=== PATIENT | female | born 1960 | race Caucasian/White ===

== ENCOUNTER 2025-02-18 09:59 | Outpatient (REF) | payer MEDICARE, SELFPAY ==
--- OUTSIDE RECORDS SUMMARY | 2025-02-18 11:46 | XMS_ITS | Clinical Summary ---
Author Organization [employer] Address [address] [place] [address] [address] [place] [address] Care Team Providers Care Machine Former Name Role Phone Flory Evangelista MD Primary Care Provider [phone] Allergies Active Allergy Reactions Criticality Noted Date Comments [place] Meal (Obsolete) Angioedema 01/22/2025 Aspirin Hives 01/22/2025 Penicillin G Hives 01/22/2025 Medications Blood Pressure kitIndications:El evated blood pressure reading 1 Units Once per day. 1 kit 01/23/20 25 Active Diclofenac Sodium 1 % gel APPLY 2 GRAMS TOPICALLY TO AFFECTED AREA 4 TIMES A DAY FOR PAIN FOR 10 DAYS 01/09/20 25 025 Discontinu ed(Therapy completed) indomethacin (Indocin) 50 MG capsule TAKE 1 CAPSULE (ORAL) 3 TIMES PER DAY NEEDED FOR PAIN FOR 14 DAYS 11/22/19 25 025 Discontinu ed(Therapy completed) [id number] Vac Recomb Adjuvanted 120 MCG/0.5ML reconstituted suspension Inject 0.5 mL into the muscle 1 (one) time for 1 dose. 1 each 01/23/20 25 025 Active Problems No known active problems Encounters Date Type Department Care Team Description 01/28/2025 Telephone [facility] MED & PEDS [address] [place], [place] [phone] Flory Evangelista MD 01/25/2025 Orders Only [place] [employer] [address] [place], [place] [phone] ProviderAlla MD 01/22/2025 1:15 PM EDT Office Visit [facility] MED & PEDS [address] [place] [address] Flory Evangelista MD Elevated blood pressure reading (Primary Dx); Breast cancer screening by mammogram; Need for vaccination; Encounter for health-related screening; Chronic pain of left thumb; Chronic pain of left knee 01/22/2025 Travel 01/14/2025 Patient Outreach [facility] [address] [place] [address] Rinku Linda MD Pre-visit Planning (Pre visit planning LVM ) from Last 3 Months Family History Medical History Relation Name Comments Thyroid nodules Brother back pain Brother Stomach cancer Daughter Intracerebral hemorrhage Father Dementia Mother Hypertension Mother Depression Sister Younger Sister Relation Name Status Comments Brother Daughter Father Mother Sister Younger Sister Other Social History Tobacco Use Types Packs/Day Years Used Date Smoking Tobacco: Never Passive Smoke Exposure: Never Smokeless Tobacco: Never Tobacco Cessation:Counseling Given: Not Answered Alcohol Use Standard Drinks/Week Comments Never 0 (1 standard drink = 0.6 oz pur e alcohol) Comments Unknown Sex and Gender Information Value Date Recorded Sex Assigned at Female 01/22/2025 10:33 AM EDT Legal Sex Female 2:26 PM EDT Gender Identity Female 11/09/2024 2:30 PM EDT Sexual Orientation Don't know 01/22/2025 10 :33 AM EDT Last Filed Vital Signs Vital Sign Reading Time Taken Comments Blood Pressure 138/99 01/22/2025 1:24 PM EDT Pulse 86 01/22/2025 1:24 PM EDT Temperature 36.6 C (97.8 F) 01/22/2025 1:24 PM EDT Respiratory Rate 20 01/22/2025 1:24 PM EDT Oxygen Saturation 98% 01/22/2025 1:24 PM EDT Inhaled Oxygen Concentration - - Weight 54.5 kg (120 lb 3.2 oz) 01/22/2025 1:24 P M EDT Height 151 cm (4' 11.45 ) 01/22/2025 1:24 PM EDT Body Mass Index 23.91 01/22/2025 1:24 PM EDT Plan of Treatment Upcoming Encounters Date Type Department Care Team (Late st Contact Info) Description 03/04/2025 2:30 PM EST Office Visit [facility] MED & PEDS [address] [place] [address] Flory Evangelista MD [address] [place] [address] Health Maintenance Due Date Last Done Comments CT Colonography 1958 Colonoscopy 1958 Depression Screening 1958 FIT 1958 FOBT 1958 SDOH Screening 1958 Sigmoidoscopy 1958 Alcohol/Substance Use Screening 1970 Hepatitis C Screening 1976 DTaP/Tdap/Td Vaccines (1 - Tdap) 1977 Mammogram 1998 Pneumococcal Vaccine: 50+ Ye ars (1 of 1 - PCV) 2008 Zoster Vaccines (1 of 2) 2008 COVID-19 Vaccine ( - 2023-2 5 season) 2024 Influenza Vaccine (#1) 2024 Tobacco Screening 01/22/2026 01/22/2025 Colorectal Cancer Screening 11/28/2027 FIT DNA/Cologuard 11/28/2027 11/27/2024 RSV Patients and Pa tients Aged 60 years or older (1 - 1-dose 75+ series) 2033 HIB Vaccines Aged Out No longer eligi ble based on patient's age to complete this topic HPV Vaccines Aged Out No longer eligi ble based on patient's age to complete this topic Hepatitis A Vaccines Aged Out No long er eligible based on patient's age to complete this topic Hepatitis B Vaccines Aged Out No long er eligible based on patient's age to complete this topic IPV Vaccines Aged Out No longer eligi ble based on patient's age to complete this topic Meningococcal B Vaccine Aged Out No l onger eligible based on patient's age to complete this topic Meningococcal Vaccine Aged Out No basil reta eligible based on patient's age to complete this topic RSV under 20 months Aged Out No longe r eligible based on patient's age to complete this topic Rotavirus Vaccines Aged Out No longer eligible based on patient's age to complete this topic Procedures Procedure Name Priority Date/Time Associated Diagnosis Comments COLOGUARD COLON CANCER SCREENING (EXTERNAL RESULTS ONLY) Routine 11/27/2024 11:17 AM EDT from Last 3 Months Results * Cologuard Cancer Screening (External Result Only) (11/27/2024 11:17 AM EDT) Stool (Rectum) Historical Provider POINT OF CARE TEST ENTER/ EDIT ORDERABLES Final Result from Last 3 Months Insurance [facility] PPO Care Teams Machine Former Relationship Specialty Start Date End Date Flory Evangelista MD [address] [place] [phone] PCP - General Family Medicine 01/22/25
--- OUTSIDE RECORDS SUMMARY | 2025-02-18 11:46 | XMS_ITS | Encounter Summary ---
Author Organization [employer] Address [address] [place] [address] [address] [place] [address] Care Team Providers Care Field Installer Name Role Phone Flory Evangelista MD Primary Care Provider [phone] Encounter Details Date Type Department Care Team (Late Contact Info) Description 01/25/2025 Orders Only [facility] [address] [place], [place] [phone] ProviderAlla MD Social History Tobacco Use Types Packs/Day Years Used Date Smoking Tobacco: Never Passive Smoke Exposure: Never Smokeless Tobacco: Never Alcohol Use Standard Drinks/Week Comments Never 0 (1 standard drink = 0.6 oz pur e alcohol) Comments Unknown Sex and Gender Information Value Date Recorded Sex Assigned at Female 01/22/2025 10:33 AM EDT Legal Sex Female 2:26 PM EDT Gender Identity Female 11/09/2024 2:30 PM EDT Sexual Orientation Don't know 01/22/2025 10 :33 AM EDT documented as of this encounter Plan of Treatment Upcoming Encounters Date Type Department Care Team (Late Contact Info) Description 03/04/2025 2:30 PM EST Office Visit [facility] MED & PEDS [address] [place] [address] Flory Evangelista MD [address] [place] [address] documented as of this encounter Procedures Procedure Name Priority Date/Time Associated Diagnosis Comments COLOGUARD COLON CANCER SCREENING (EXTERNAL RESULTS ONLY) Routine 11/27/2024 11:17 AM EDT documented in this encounter Results * Cologuard Cancer Screening (External Result Only) (11/27/2024 11:17 AM EDT) Stool (Rectum) us Historical Provider POINT OF CARE TEST ENTER/ EDIT ORDERABLES Final Result documented in this encounter Visit Diagnoses Not on filedocumented in this encounter Care Teams Field Installer Relationship Specialty Start Date End Date Flory Evangelista MD [address] [place] [phone] PCP - General Family Medicine 01/22/25 documented as of this encounter
[2025-02-18 14:35] LABS: MANUAL DIFF FLAG NO
[2025-02-18 14:49] LABS: Hematocrit 43.8 % (37.0-47.0); Hemoglobin 14.4 g/dl (12.0-16.0); Imm Gran Abs Auto 0.02 X10*3/uL (0.00-0.03); Imm Gran Pct Auto 0.3 % (0.0-0.4); Lymphocytes Absolute Auto 1.8 X10*3/uL (1.2-4.9); Mean Corpuscular HGB Conc 32.9 g/dl (31.0-35.0); Mean Corpuscular Hemoglobin 29.8 pg (27.0-33.0); Mean Corpuscular Volume 90.5 fL (80.0-98.0); NRBC Abs Auto 0.000 X10*3/uL (0.0-0.012); NRBC Pct Auto 0.0 /100WBC (0.0-0.2); Platelet Count 223 X10*3/uL (160-400); Red Blood Count 4.84 X10*6/uL (4.20-5.50); White Blood Count 6.1 X10*3/uL (4.8-10.8)
[2025-02-18 15:00] LABS: Alanine Aminotransferase 37 U/L (0-31); Albumin Level 4.4 g/dL (3.5-5.0); Alkaline Phosphatase 69 U/L (39-117); Anion Gap 11 (12-20); Aspartate Amino Transferase 34 U/L (5-31); Blood Urea Nitrogen 14 mg/dL (9-16); Calcium 9.0 mg/dL (8.4-10.2); Carbon Dioxide 26 mmol/L (22-29); Chloride 108 mmol/L (96-108); Cholesterol 237 mg/dL (<200); Estimated Glomerular Filt Rate > 60; HDL Cholesterol 44 mg/dL (>40); Potassium 3.8 mmol/L (3.3-5.1); Sodium 141 mmol/L (135-145); Total Protein 7.3 g/dL (6.5-8.0); Triglycerides 205 mg/dL (<150)
[2025-02-19 04:24] LABS: HBc Num1 0.08 S/CO (0.00-0.79); HBsAGNum1 0.29 S/CO (0.00-0.99); Hepatitis B Surface Antigen Negative (Negative)
[2025-02-19 04:29] LABS: HBS Num1 64.75 mIU/mL (0-7.99); HIV Num 1 0.07 S/CO (0.00-0.99); ~HepC Num1 0.29 S/CO (0.00-0.79); ~Hepatitis B Surface Antibody REACTIVE (Nonreactive); ~Hepatitis C Antibody Nonreactive (Nonreactive)
[2025-02-19 05:38] LABS: Rubeola IgG (Measles) >300.00 AU/mL
== END 2025-02-18 10:00 | disposition home or self-care (01) ==
LOC: HO.CHCLDS 09:59
PROVIDERS: PCP Family Medicine; Visit Provider Family Medicine
DX: Z01.84 Encounter for antibody response examination (principal); Z23 Encounter for immunization; Z13.6 Encounter for screening for cardiovascular disorders; Z11.4 Encounter for screening for human immunodeficiency virus [HIV]; Z13.89 Encounter for screening for other disorder
CPT/HCPCS: 36415; 80053; 80061; 84443; 85025; 86704; 86706; 86735; 86762; 86765; 86803; 87340; 87389